=== PATIENT | male | born 1990 | race Caucasian/White ===

== ENCOUNTER 2021-11-02 17:19 | Emergency (ER) | payer MEDICAID ==
[2021-11-02] MEDS ORDERED: diphenhydrAMINE 50 MG/ML SDV IM ONE (17:31)
[2021-11-02] MEDS ORDERED: diphenhydrAMINE 50 MG/ML SDV IVPUSH ONE (17:34)
== END 2021-11-02 18:12 | disposition home or self-care (01) ==
LOC: JP.ED 17:19
DX: T78.1XXA Other adverse food reactions, not elsewhere classified, initial encounter (principal); Z91.018 Allergy to other foods
CPT/HCPCS: 96374; 99282; 99283-25; J1200

== ENCOUNTER 2022-02-09 15:42 | Emergency (ER) | payer MEDICAID ==
[2022-02-09] MEDS ORDERED: Sodium Chloride 0.9% 10 ML Syringe FLUSH PRN (17:06)
[2022-02-09] MEDS ORDERED: Ketorolac 30 MG/ML SDV IVPUSH ONE (17:06)
[2022-02-09] MEDS ORDERED: Sodium Chloride 0.9% 1,000 ML IV ONE (17:41)
[2022-02-09 17:47] LABS: ESTIMATED GFR 104 mL/min (>60)
[2022-02-09] MEDS ORDERED: Ondansetron 4 MG/2 ML SDV IVPUSH ONE (17:51)
[2022-02-09] MEDS ORDERED: HYDROmorphone 0.5 MG/0.5 ML Syringe IVPUSH ONE ×2 (17:51→20:12)
[2022-02-09] MEDS ORDERED: Iopamidol 612 MG/ML 100 ML Bottle IV PRN (18:58)
[2022-02-09] MEDS ORDERED: Sodium Chloride 0.9% 50 ML IV SCH (19:00)
[2022-02-09] MEDS ORDERED: cefTRIAXone 2 GM in Sodium Chloride 0.9% 50 ML IV ONE (21:04)
[2022-02-09] MEDS ORDERED: Aspirin 81 MG Tab.Chew PO ONE (21:22)
== END 2022-02-09 22:35 | disposition home or self-care (01) ==
LOC: JP.ED 15:42
DX: J18.9 Pneumonia, unspecified organism (principal); A79.82 Anaplasmosis [A. phagocytophilum]; Z91.018 Allergy to other foods; Z79.899 Other long term (current) drug therapy; Z87.891 Personal history of nicotine dependence; Z20.822 Contact with and (suspected) exposure to COVID-19
CPT/HCPCS: 36415; 71275; 80053; 84145; 85025; 85379; 86140; 87040; 87635; 96361; 96365; 96375; 96376; 99282; 99284; A9270; J0696; J1170; J1885; J2405; J3490; J7030; Q9967; U0002

== ENCOUNTER 2024-02-26 21:07 | Emergency (ER) | payer MEDICAID ==
[2024-02-26] MEDS: Glucagon,Human Recombinant 1 MG Vial IM ONE (22:00)
[2024-02-26] MEDS: HYDROmorphone 1 MG/ML Syringe IM ONE (22:49)
== END 2024-02-26 22:58 | disposition home or self-care (01) ==
LOC: JP.ED 21:07
DX: T18.108A Unspecified foreign body in esophagus causing other injury, initial encounter (principal); J45.909 Unspecified asthma, uncomplicated; Z79.899 Other long term (current) drug therapy; Z91.018 Allergy to other foods; Z91.030 Bee allergy status
CPT/HCPCS: 82947; 96372; 99283; J1170; J1611